=== PATIENT | female | born 1970 | race Caucasian/White ===

== ENCOUNTER 2017-07-04 08:40 | Emergency (ER) | payer OTHER ==
[~2017-07-04] VITALS: Ht 149.9 cm; Wt 62.7 kg
[~2017-07-04 08:40] MED LIST: CLONAZEPAM1 MG PO; COGENTIN0.5 MG PO; DESYREL100 MG PO; DIAZEPAM2 MG PO; FIORICET 50-301 EACH PO; FLOVENT 11120 INHALA IH; FLOVENT 22120 INHALA IH; GEODON20 MG PO; HYDROXYZINE HCL50 MG PO; KLONOPIN2 MG PO; LYRICA50 MG PO; MOBIC15 MG PO; NAPROSYN500 MG PO; NEURONTIN100 MG PO; NEURONTIN300 MG PO; NEURONTIN600 M1 PO; PERCOCET 5/31 TABLET PO; PREDNISONE20 MG PO; PRINIVIL10 MG PO; PRISTIQ50 MG PO; PROZAC20 MG PO; PROZAC40 MG PO; ROBAXIN500 MG PO; TRAMADOL-ACETA1 EACH PO; TYLENOL WITH C1 EACH PO; VALIUM2 MG PO; VALIUM5 MG PO; VENTOLIN HFA18 GM IH; VERELAN 180 MG180 MG PO; VISTARIL50 MG PO; ZYRTEC10 M2 PO; ZYRTEC10 M3 PO
[2017-07-04 09:19] LABS: BASOPHIL (%) 0.6 % (0-1); EOSINOPHIL (%) 1.6 % (0-5); EOSINOPHIL COUNT 0.1 K/uL (0-0.3); HEMATOCRIT 39.5 % (36.0-46.0); IMMATURE GRANULOCYTE (%) 0.1 % (0.0-0.7); LYMPHOCYTE (%) 29.5 % (15-42); MCH 29.4 PG (29.0-34.0); MCHC 32.9 G/DL (30.0-36.0); MCV 89.4 FL (83-99); MONOCYTE (%) 7.3 % (3-12); MONOCYTE COUNT 0.5 K/uL (0-0.8); NEUTROPHIL (%) 60.9 % (45-76); NEUTROPHIL COUNT 4.2 K/uL (1.8-6.4); PLATELET COUNT 288 K/uL (156-360); RBC DIS.WIDTH-CV 12.9 % (11.8-14.6); RBC DIS.WIDTH-SD 42.3 % (39-53); RED BLOOD COUNT 4.42 M/uL (3.80-5.20); WHITE BLOOD COUNT 6.9 K/uL (4.1-10.2)
[2017-07-04 09:28] LABS: PTT 26.6 SEC (25-37)
[2017-07-04 09:30] LABS: CHLORIDE 108 mEq/L (99-109); POTASSIUM 4.4 mEq/L (3.7-5.4); SODIUM 139 mEq/L (136-147)
[2017-07-04 09:31] LABS: GLUCOSE 104 mg/dL (70-99)
[2017-07-04 09:35] LABS: CREATININE 0.8 mg/dL (0.6-1.3); GFR ESTIMATE (CALCULATED) > 59 mL/min/
[2017-07-04 09:36] LABS: UREA NITROGEN (BUN) 14 mg/dL (9-23)
[2017-07-04 09:43] LABS: TROP-I INTERPRETATION NEGATIVE; TROPONIN-I < 0.01 ng/mL (0.0-0.30)
[2017-07-04 11:51] LABS: TROP-I INTERPRETATION NEGATIVE; TROPONIN-I < 0.01 ng/mL (0.0-0.30)
[2017-07-04 12:57] VITALS: BP 123/82
== END 2017-07-04 13:00 | disposition home or self-care (01) ==
LOC: EME 08:40
PROVIDERS: Emergency Medicine
DX: R07.89 Other chest pain (principal); J20.9 Acute bronchitis, unspecified; I10 Essential (primary) hypertension; J45.909 Unspecified asthma, uncomplicated; G89.29 Other chronic pain; F32.9 Major depressive disorder, single episode, unspecified; F41.9 Anxiety disorder, unspecified; F12.90 Cannabis use, unspecified, uncomplicated
CPT/HCPCS: 71045; 71275; 80048; 84484; 85025; 85379; 85610; 85730; 93005; 99281; 99285; J7030